=== PATIENT | female | born 1995 | race Caucasian/White ===

== ENCOUNTER 2016-11-16 20:29 | Emergency (ER) | payer OTHER ==
[2016-11-16 20:51] VITALS: RESP 16; TEMP 97.5; O2SAT 100
[2016-11-16] MEDS ORDERED: Sodium Chloride 0.9% 1,000 ML IV ONE (21:46)
--- NOTE | 2016-11-16 21:46 | C.PDOC ---
History Of Present Illness Patient is a 21 y/o female who presents to the ED with complaints of constipation and diarrhea. Patient admits to feeling dizzy and dehydrated. Patient took Dulcolax this morning with no relief. No other physical complaints at this time. Time Seen by Provider: 11/16/16 21:45 Chief Complaint (Nursing): GI Problem History Per: Patient History/Exam Limitations: no limitations Onset/Duration Of Symptoms: Hrs (symptoms began this morning) Current Symptoms Are (Timing): Still Present Associated Symptoms: Diarrhea, Constipation, Other (feeling dehydrated and dizzy ) Recent travel outside of the [place]: No Past Medical History Reviewed: Historical Data, Nursing Documentation, Vital Signs Vital Signs: Last Vital Signs Temp 97.5 F L 11/16/16 20:45 Pulse 60 11/16/16 20:45 Resp 16 11/16/16 20:45 BP 120/81 11/16/16 20:45 Pulse Ox 100 11/16/16 23:10 - Medical History PMH: No Chronic Diseases Surgical History: No Surg Hx Family History: States: Unknown Family Hx - Social History Hx Alcohol Use: No Hx Substance Use: No - Immunization History Hx Influenza Vaccination: No Hx Pneumococcal Vaccination: No Review Of Systems Constitutional: Negative for: Fever, Chills Cardiovascular: Negative for: Chest Pain Respiratory: Negative for: Shortness of Breath Gastrointestinal: Positive for: Abdominal Pain, Diarrhea, Constipation Neurological: Positive for: Dizziness Physical Exam - Physical Exam Appears: Well, Non-toxic Skin: Warm, Dry Head: Atraumatic Eye(s): bilateral: Normal Inspection Oral Mucosa: Dry Neck: Supple Chest: Symmetrical Cardiovascular: Rhythm Regular, No Murmur Respiratory: No Rales, No Rhonchi, No Wheezing Gastrointestinal/Abdominal: Soft, No Tenderness Back: Normal Inspection Extremity: Normal ROM Extremity: Bilateral: Atraumatic Neurological/Psych: Oriented x3, Normal Speech, Normal Cognition Gait: Steady ED Course And Treatment - Laboratory Results Result Diagrams: 11/16/16 22:32 11/16/16 22:32 O2 Sat by Pulse Oximetry: 100 Pulse Ox Interpretation: Normal Progress Note: UA ordered; IV fluids administered. Reevaluation Time: 23:33 Reassessment Condition: Improved Disposition Counseled Patient/Family Regarding: Studies Performed, Diagnosis, Need For Followup - Disposition Referrals: [facility] [Outside] [facility] [Outside] Disposition: HOME/ ROUTINE Disposition Time: 21:46 Condition: FAIR Instructions: Acute Diarrhea (ED), Hyponatremia (DC) Forms: [facility] ([facility]ami), Work Excuse - Clinical Impression Clinical Impression: Diarrhea, Hyponatremia - Scribe Statement The provider has reviewed the documentation as recorded by the Scribe Ember Douglass All medical record entries made by the Scribe were at my direction and personally dictated by me. I have reviewed the chart and agree that the record accurately reflects my personal performance of the history, physical exam, medical decision making, and the department course for this patient. I have also personally directed, reviewed, and agree with the discharge instructions and disposition.
[2016-11-16] MEDS ORDERED: Sodium Chloride 0.9% 1,000 ML ONE (22:16)
[2016-11-16 22:36] LABS: BASO # 0.1 K/uL (0.0-0.2); BASO % 1.3 % (0.0-2.0); EOS # 0.2 K/uL (0.0-0.7); HEMATOCRIT 35.7 % (34.0-47.0); LYMPH % 49.5 % (20.0-40.0); MEAN CELL VOLUME 94.9 fL (81.0-99.0); MEAN CORPUSCULAR HEMOGLOBIN 32.8 pg (27.0-31.0); MEAN CORPUSCULAR HGB CONC 34.6 g/dL (33.0-37.0); MEAN PLATELET VOLUME 8.2 fL (7.2-11.7); MONO # 0.2 K/uL (0.0-0.8); MONO % 5.5 % (0.0-10.0); NRBC % 0.1 % (0.0-2.0); RED CELL DISTRIBUTION WIDTH 12.8 % (11.5-14.5)
[2016-11-16 22:53] LABS: CHLORIDE 91 mmol/L (98-107); POTASSIUM 3.6 mmol/L (3.6-5.2); SODIUM 124 mmol/L (132-148)
[2016-11-16 22:55] LABS: ALB/GLOB RATIO 1.4 (1.0-2.1); ALKALINE PHOSPHATASE 39 U/L (38-126); AST/SGOT 24 U/L (14-36); BILIRUBIN,TOTAL 0.8 mg/dL (0.2-1.3); CARBON DIOXIDE 23 mmol/L (22-30); GFR AFRICAN-AMERICAN > 60; TOTAL PROTEIN 6.2 g/dL (6.3-8.3)
[2016-11-16 22:56] LABS: ALT/SGPT 35 U/L (9-52); BLOOD UREA NITROGEN 7 mg/dL (7-17); CALCIUM 8.3 mg/dl (8.6-10.4); GLUCOSE,RANDOM 76 mg/dL (65-105)
[2016-11-16 23:07] LABS: RBC URINE < 1 /hpf (0-3); URINE BILIRUBIN NEGATIVE (NEGATIVE); URINE BLOOD NEGATIVE (NEGATIVE); URINE COLOR Straw (YELLOW); URINE GLUCOSE (UA) NORMAL (Normal); URINE KETONE NEGATIVE (NEGATIVE); URINE LEUKOCYTE ESTERASE NEG Leu/uL (Negative); URINE PROTEIN NEGATIVE (NEGATIVE); URINE UROBILINOGEN NORMAL mg/dL (0.2-1.0); WBC URINE 1 /hpf (0-5)
[2016-11-16 23:54] VITALS: BP 121/68; PULSE 64
== END 2016-11-16 23:40 | disposition home or self-care (01) ==
LOC: C.ER 20:29
DX: E87.1 Hypo-osmolality and hyponatremia (principal); R19.7 Diarrhea, unspecified
CPT/HCPCS: 80053; 81001; 83690; 84703; 85025; 96360; 99284; J7040